=== PATIENT | male | born 1960 | race Caucasian/White ===

== ENCOUNTER 2021-11-11 12:09 | Outpatient (CLI) | payer MEDICAID, SELFPAY ==
[2021-11-11 13:00] LABS: Anion Gap 18.7 (5-19); Blood Urea Nitrogen 37 mg/dL (8-23); Carbon Dioxide 25 mmol/L (22-29); Chloride 96 mmol/L (98-107); Glomerular Filtration Rate 25.2 mL/min (90-130); Glucose 116 mg/dL (65-115); Osmolality Calculated 288 mOsm/kg (285-295); Potassium 5.7 mmol/L (3.5-5.1); Sodium 134 mmol/L (136-145)
[2021-11-11 13:22] LABS: NT Pro B Type Natriuretic Pept 54677 pg/mL (0-125)
== END 2021-11-11 12:10 | disposition home or self-care (01) ==
PROVIDERS: Visit Provider Internal Medicine
DX: I10 Essential (primary) hypertension (principal)
CPT/HCPCS: 80048; 83880

== ENCOUNTER 2022-03-29 18:40 | Outpatient (CLI) | payer MEDICAID, SELFPAY ==
[2022-03-29 19:04] LABS: INR 1.25 (0.8-1.2)
== END 2022-03-29 18:41 | disposition home or self-care (01) ==
LOC: LAB 18:43
PROVIDERS: Visit Provider Internal Medicine
DX: Z01.89 Encounter for other specified special examinations (principal)
CPT/HCPCS: 85610

== ENCOUNTER 2022-05-20 12:54 | Outpatient (CLI) | payer MEDICAID, SELFPAY ==
[2022-05-20 13:27] LABS: INR 2.68 (0.8-1.2)
== END 2022-05-20 12:55 | disposition home or self-care (01) ==
PROVIDERS: Visit Provider Internal Medicine
DX: Z79.01 Long term (current) use of anticoagulants (principal)
CPT/HCPCS: 85610

== ENCOUNTER 2022-05-21 12:57 | Outpatient (CLI) | payer MEDICAID, SELFPAY ==
[2022-05-21 13:45] LABS: INR 2.32 (0.8-1.2)
== END 2022-05-21 12:58 | disposition home or self-care (01) ==
PROVIDERS: Visit Provider Internal Medicine
DX: Z79.01 Long term (current) use of anticoagulants (principal)
CPT/HCPCS: 85610

== ENCOUNTER 2022-06-03 12:50 | Outpatient (CLI) | payer MEDICAID, SELFPAY ==
[2022-06-03 13:30] LABS: INR 1.66 (0.8-1.2)
== END 2022-06-03 12:51 | disposition home or self-care (01) ==
PROVIDERS: Visit Provider Internal Medicine
DX: Z79.01 Long term (current) use of anticoagulants (principal)
CPT/HCPCS: 85610